=== PATIENT | female | born 1990 | race Caucasian/White ===

== ENCOUNTER → 2017-03-14 | Outpatient (CLI) | payer OTHER ==
--- NOTE | 2017-03-15 11:04 | DI ---
Indication: ITS.REASON: FREQ PERIODS N92.0 PROCEDURE: US PELVIC NON OB W/TRANS VAG: Encounter: Initial Comparison: None FINDINGS: Transvaginal and transabdominal pelvic imaging was performed. The uterus measures 8 x 4.2 x 5.8 cm. The parenchyma is homogeneous without fibroids. The endometrial stripe measures 7 mm in thickness. There is no evidence of focal endometrial mass. Possible arcuate uterus. Both ovaries are identified and normal in appearance. The right ovary measures 2.9 x 1.9 x 2.7 cm. The left ovary measures 2.9 x 2.1 x 1.6 cm. There are no abnormal adnexal masses detected. IMPRESSION: No acute abnormality seen. .
== END ==
LOC: IMA 17:07
PROVIDERS: ATTEND Family Medicine
DX: N92.0 Excessive and frequent menstruation with regular cycle (principal)